=== PATIENT | female | born 1980 | race Caucasian/White ===

== ENCOUNTER → 2017-09-08 12:24 | Outpatient (CLI) | payer OTHER, SELFPAY | PROVIDERS: Family Provider Family Medicine; PCP Family Medicine; Visit Provider Obstetrics & Gynecology | DX: N39.0 Urinary tract infection, site not specified (principal); N77.1 Vaginitis, vulvitis and vulvovaginitis in diseases classified elsewhere | CPT/HCPCS: 87086 ==

== ENCOUNTER → 2018-04-04 20:40 | Outpatient (CLI) | payer OTHER, SELFPAY ==
[2018-04-07 14:20] LABS: HPV Reflexed? NOT INDICATED
== END ==
PROVIDERS: Visit Provider Obstetrics & Gynecology
DX: Z12.4 Encounter for screening for malignant neoplasm of cervix (principal)
CPT/HCPCS: 88175; G0145

== ENCOUNTER → 2018-10-04 13:52 | Outpatient (CLI) | payer OTHER, SELFPAY ==
[2018-10-04 16:42] LABS: AST(SGOT) 26 U/L (15-37); Alanine Aminotransfer ALT/SGPT 21 U/L (13-56); Cholesterol 194 mg/dL (200); High Density Lipoprotein 63 mg/dL; Thyroid Stim Hormone (TSH) 1.33 uIU/mL (0.358-3.74); Triglycerides 127 mg/dL; Very Low Density Lipoprotein 25 mg/dL (5-40)
== END ==
PROVIDERS: Family Provider Family Medicine; PCP Family Medicine; Referring Provider Family Medicine; Visit Provider Family Medicine
DX: E78.00 Pure hypercholesterolemia, unspecified (principal); R63.5 Abnormal weight gain
CPT/HCPCS: 36415; 80061; 84443; 84450; 84460

== ENCOUNTER → 2019-09-21 07:48 | Outpatient (CLI) | payer OTHER, SELFPAY ==
--- NOTE | 2019-09-21 08:01 | US_ITS ---
STUDY: ABDOMINAL ULTRASOUND - RIGHT UPPER QUADRANT REASON FOR VISIT: Female, 39 years old PERSIST ANT RT ABD PAIN TECHNIQUE: Ultrasound evaluation of the right upper quadrant was performed with real-time and static youngblood-scale imaging. TECHNICAL QUALITY: Adequate. COMPARISON: None. FINDINGS: Liver: The liver measures 12.9 cm. There is normal echogenicity of the liver. The bile ducts are within normal limits. There is hepatic color flow. The direction of portal flow is hepatopetal. There is no demonstrated mass lesion. Gallbladder: Normal distended gallbladder. The gallbladder wall measures 2.8 mm. There is a negative sonographic Ely''s sign. There is no pericholecystic fluid. There are no gallstones. Common Bile Duct (C.B.D.): The common bile duct measures 2.5 mm. Pancreas: Normal size of the head, body and tail of the pancreas. There is normal echogenicity of the pancreas. There is no demonstrated pancreatic mass or cyst. Right Kidney: Normal size of the right kidney. The right kidney measures 11.3 cm x 4.7 cm x 3.8 cm. Normal renal cortex. The right cortex measures 1.6 cm. There is no demonstrated renal mass or cyst. There is no right hydronephrosis. US/Abdomen Limited IMPRESSION: Normal right upper quadrant ultrasound examination. Electronically Signed: Osmar Killian, at 9:25 EDT , Service support ,
== END ==
PROVIDERS: PCP Family Medicine; Referring Provider Family Medicine; Visit Provider Family Medicine
DX: R10.11 Right upper quadrant pain (principal)
CPT/HCPCS: 76705

== ENCOUNTER → 2020-11-28 15:46 | Outpatient (CLI) | payer OTHER, SELFPAY ==
[2020-11-28 17:46] LABS: AST(SGOT) 25 U/L (15-37); Alanine Aminotransfer ALT/SGPT 24 U/L (13-56); Cholesterol 183 mg/dL (200); High Density Lipoprotein 55 mg/dL; Thyroid Stim Hormone (TSH) < 0.01 uIU/mL (0.358-3.74); Triglycerides 159 mg/dL; Very Low Density Lipoprotein 32 mg/dL (5-40)
[2020-12-01 17:45] LABS: Free T3 4.3 pg/mL (2.18-3.98); T4 Total, Thyroxin 11.1 ug/dL (4.8-13.9)
== END ==
PROVIDERS: PCP Family Medicine; Referring Provider Family Medicine; Visit Provider Family Medicine
DX: Z00.00 Encounter for general adult medical examination without abnormal findings (principal); E66.9 Obesity, unspecified; E78.00 Pure hypercholesterolemia, unspecified
CPT/HCPCS: 36415; 80061; 84436; 84443; 84450; 84460; 84481

== ENCOUNTER → 2021-02-06 11:52 | Outpatient (CLI) | payer OTHER, SELFPAY ==
[2021-02-06 15:54] LABS: Free T3 2.1 pg/mL (2.18-3.98); T4 Free Direct 0.67 ng/dL (0.76-1.46)
== END ==
PROVIDERS: PCP Family Medicine; Referring Provider Family Medicine; Visit Provider Internal Medicine Endocrinology, Diabetes & Metabolism
DX: R94.6 Abnormal results of thyroid function studies (principal)
CPT/HCPCS: 36415; 84439; 84443; 84481

== ENCOUNTER 2021-08-18 11:55 | Outpatient (CLI) | payer OTHER, SELFPAY ==
[2021-08-21 17:22] LABS: HPV APTIMA, High Risk Negative (Negative)
== END 2021-08-18 23:59 | disposition home or self-care (01) ==
PROVIDERS: PCP Family Medicine; Visit Provider Student in an Organized Health Care Education/Training Program
DX: Z12.4 Encounter for screening for malignant neoplasm of cervix (principal); N77.1 Vaginitis, vulvitis and vulvovaginitis in diseases classified elsewhere
CPT/HCPCS: 87624; 88175; G0145

== ENCOUNTER → 2021-12-16 | Outpatient (CLI) | payer OTHER, SELFPAY ==
[2021-12-16 18:38] LABS: AST(SGOT) 25 U/L (15-37); Alanine Aminotransfer ALT/SGPT 27 U/L (13-56); Cholesterol 208 mg/dL (200); High Density Lipoprotein 65 mg/dL; T4 Total, Thyroxin 6.3 ug/dL (4.8-13.9); Thyroid Stim Hormone (TSH) 5.67 uIU/mL (0.358-3.74); Triglycerides 152 mg/dL; Very Low Density Lipoprotein 30 mg/dL (5-40)
== END | disposition home or self-care (01) ==
LOC: MFPLAB 16:41
PROVIDERS: PCP Family Medicine; Referring Provider Family Medicine; Visit Provider Family Medicine
DX: E78.5 Hyperlipidemia, unspecified (principal); E05.90 Thyrotoxicosis, unspecified without thyrotoxic crisis or storm
CPT/HCPCS: 36415; 80061; 84436; 84443; 84450; 84460

== ENCOUNTER → 2022-02-16 | Outpatient (CLI) | payer OTHER, SELFPAY ==
[2022-02-16 15:47] LABS: Free T3 2.2 pg/mL (2.18-3.98); T4 Free Direct 0.72 ng/dL (0.76-1.46); Thyroid Stim Hormone (TSH) 4.38 uIU/mL (0.358-3.74)
[2022-02-19 18:13] LABS: Thyroid Peroxidase AB 286 IU/mL (0-34)
== END | disposition home or self-care (01) ==
LOC: MTLAB 12:41
PROVIDERS: PCP Family Medicine; Referring Provider Internal Medicine Endocrinology, Diabetes & Metabolism; Visit Provider Internal Medicine Endocrinology, Diabetes & Metabolism
DX: R94.6 Abnormal results of thyroid function studies (principal)
CPT/HCPCS: 36415; 84439; 84443; 84481; 86376

== ENCOUNTER → 2022-04-21 | Outpatient (CLI) | payer OTHER, SELFPAY ==
[2022-04-21 18:55] LABS: T4 Free Direct 1.33 ng/dL (0.76-1.46); Thyroid Stim Hormone (TSH) 0.11 uIU/mL (0.358-3.74)
== END | disposition home or self-care (01) ==
LOC: MFPLAB 15:07
PROVIDERS: PCP Family Medicine; Referring Provider Family Medicine; Visit Provider Internal Medicine Endocrinology, Diabetes & Metabolism
DX: E03.8 Other specified hypothyroidism (principal); E06.3 Autoimmune thyroiditis
CPT/HCPCS: 36415; 84439; 84443

== ENCOUNTER → 2022-07-28 | Outpatient (CLI) | payer OTHER, SELFPAY ==
[2022-07-28 12:50] LABS: Thyroid Stim Hormone (TSH) 3.45 uIU/mL (0.358-3.74)
== END | disposition home or self-care (01) ==
LOC: MFPLAB 10:13
PROVIDERS: PCP Family Medicine; Referring Provider Family Medicine; Visit Provider Internal Medicine Endocrinology, Diabetes & Metabolism
DX: E03.8 Other specified hypothyroidism (principal); E06.3 Autoimmune thyroiditis
CPT/HCPCS: 36415; 84439; 84443

== ENCOUNTER → 2022-10-13 | Outpatient (CLI) | payer OTHER, SELFPAY ==
[2022-10-13 17:29] LABS: AST(SGOT) 27 U/L (15-37); Alanine Aminotransfer ALT/SGPT 23 U/L (13-56); Cholesterol 213 mg/dL (200); High Density Lipoprotein 60 mg/dL; T4 Total, Thyroxin 9.4 ug/dL (4.8-13.9); Thyroid Stim Hormone (TSH) 4.08 uIU/mL (0.358-3.74); Triglycerides 146 mg/dL; Very Low Density Lipoprotein 29 mg/dL (5-40)
== END | disposition home or self-care (01) ==
LOC: MFPLAB 14:59
PROVIDERS: PCP Family Medicine; Visit Provider Family Medicine
DX: E03.9 Hypothyroidism, unspecified (principal); E78.00 Pure hypercholesterolemia, unspecified
CPT/HCPCS: 36415; 80061; 84436; 84443; 84450; 84460

== ENCOUNTER → 2023-04-20 | Outpatient (CLI) | payer OTHER, SELFPAY ==
[2023-04-20 11:03] LABS: Thyroid Stim Hormone (TSH) 1.66 uIU/mL (0.358-3.74)
== END | disposition home or self-care (01) ==
PROVIDERS: PCP Family Medicine; Visit Provider Family Medicine
DX: E03.9 Hypothyroidism, unspecified (principal)
CPT/HCPCS: 36415; 84443

== ENCOUNTER → 2023-10-17 | Outpatient (CLI) | payer OTHER, SELFPAY ==
[2023-10-17 17:59] LABS: AST(SGOT) 31 U/L (15-37); Alanine Aminotransfer ALT/SGPT 28 U/L (13-56); Cholesterol 221 mg/dL (200); High Density Lipoprotein 63 mg/dL; Thyroid Stim Hormone (TSH) 1.75 uIU/mL (0.358-3.74); Triglycerides 132 mg/dL; Very Low Density Lipoprotein 26 mg/dL (5-40)
== END | disposition home or self-care (01) ==
LOC: MFPLAB 14:43
PROVIDERS: PCP Family Medicine; Visit Provider Family Medicine
DX: E78.00 Pure hypercholesterolemia, unspecified (principal); E03.9 Hypothyroidism, unspecified
CPT/HCPCS: 36415; 80061; 84436; 84443; 84450; 84460

== ENCOUNTER → 2023-10-24 | Outpatient (CLI) | payer OTHER, SELFPAY ==
--- NOTE | 2023-10-24 15:30 | BI_ITS ---
MAMMOGRAPHY - BILATERAL SCREENING REASON FOR EXAM: Female, 43 years old. Routine annual screening examination. PERTINENT HISTORY: Non-contributory. TECHNIQUE: Digital bilateral breast azael (3D mammographic acquisition) in the CC and MLO projections. 2-D mediolateral oblique (MLO) and craniocaudad (CC) views of both breasts were obtained. CAD: Full Field Digital Mammography with Computer Added Detection was performed. COMPARISON: None. Baseline examination. FINDINGS: Breast Composition: The breasts are heterogeneously dense, which may obscure small masses. There are no dominant masses or suspicious calcifications. No other significant abnormalities are identified. There has been no significant change since the prior study. BI/SCRN MAMM (CAD)W/AZAEL BILAT IMPRESSION: Stable bilateral screening mammogram. Yearly follow-up mammogram recommended. (A) ASSESSMENT CATEGORY: BIRADS Category 1: Negative. A letter regarding these results will be sent to the patient by the facility within 30 days. Approximately 10% of breast cancers are not detected by mammography. A normal mammogram should not delay biopsy of a clinically suspicious abnormality. [id number] Electronically Signed: Osmar Killian MD at 8:28 EDT ,
== END | disposition home or self-care (01) ==
LOC: OPBI 15:30
PROVIDERS: PCP Family Medicine; Referring Provider Family Medicine; Visit Provider Family Medicine
DX: Z12.31 Encounter for screening mammogram for malignant neoplasm of breast (principal)
CPT/HCPCS: 77063; 77067

== ENCOUNTER → 2023-12-16 | Outpatient (CLI) | payer OTHER, SELFPAY ==
[2023-12-16 10:58] LABS: Cholesterol 224 mg/dL (200); High Density Lipoprotein 59 mg/dL; Triglycerides 167 mg/dL; Very Low Density Lipoprotein 33 mg/dL (5-40)
== END | disposition home or self-care (01) ==
LOC: MFPLAB 08:16
PROVIDERS: PCP Family Medicine; Visit Provider Family Medicine
DX: E78.00 Pure hypercholesterolemia, unspecified (principal)
CPT/HCPCS: 36415; 80061

== ENCOUNTER → 2024-02-23 | Outpatient (CLI) | payer OTHER, SELFPAY ==
[2024-02-23 10:25] LABS: Cholesterol 189 mg/dL (200); High Density Lipoprotein 59 mg/dL; Triglycerides 104 mg/dL; Very Low Density Lipoprotein 21 mg/dL (5-40)
== END | disposition home or self-care (01) ==
LOC: MFPLAB 08:18
PROVIDERS: PCP Family Medicine; Visit Provider Family Medicine
DX: E78.00 Pure hypercholesterolemia, unspecified (principal)
CPT/HCPCS: 36415; 80061

== ENCOUNTER → 2025-01-24 | Outpatient (CLI) | payer OTHER, SELFPAY ==
[2025-01-24 17:11] LABS: Hematocrit 39.6 % (37-47); Hemoglobin 13.2 g/dL (12.0-15.0); Immature Granulocytes Count 0.020 X10^3/uL (0.0-0.0); Mean Corp Hgb Conc 33.3 g/dL (32-36); Mean Corpuscular Volume 90.8 fL (81-99); NRBC Flagged by Analyzer 0 % (0-5); POSITIVE COUNT YES; RBC Distribution Width CV 12.9 % (11.6-14.6); RBC Distribution Width SD 42.7 fl (35.1-43.9); Red Blood Count 4.36 M/mm3 (4.2-5.4); White Blood Count 6.1 K/mm3 (4.4-11.0)
[2025-01-24 18:00] LABS: AST(SGOT) 33 U/L (<=31); Alanine Aminotransfer ALT/SGPT 21 U/L (<=34); Albumin, Serum 4.7 g/dL (3.5-5.0); Alkaline Phosphatase 62 U/L (35-104); Anion Gap 13 (5-15); BUN 10 mg/dL (4-19); BUN/Creat Ratio 8.8 RATIO (10-20); Calcium,Total 10.1 mg/dL (7.6-11.0); Carbon Dioxide 23.6 mmol/L (21.0-32.0); Chloride 102 mmol/L (98-108); Cholesterol 209 mg/dL (<=200); Globulin 3.6 g/dL (2.2-4.2); Glucose 97 mg/dL (70-99); Low Density Lipoprotein Calc. 115 mg/dL; Potassium 4.3 mmol/L (3.3-5.1); Triglycerides 136 mg/dL; Very Low Density Lipoprotein 27 mg/dL (5-40); cholesterol:hdl ratio screen 3.13
[2025-01-24 21:54] LABS: Differential Indicated SCAN CRITERIA MET
[2025-01-24 21:55] LABS: Differential Comment SCANNED
== END | disposition home or self-care (01) ==
LOC: BIMLAB 15:27
PROVIDERS: PCP Internal Medicine; Visit Provider Internal Medicine
DX: Z00.00 Encounter for general adult medical examination without abnormal findings (principal); E03.9 Hypothyroidism, unspecified
CPT/HCPCS: 36415; 80053; 80061; 84443; 85025

== ENCOUNTER → 2025-02-01 | Outpatient (CLI) | payer OTHER, SELFPAY ==
--- NOTE | 2025-02-01 15:45 | BI_ITS ---
EXAM: SCRN MAMM (CAD)W/AZAEL BILAT DATE: 02/01/2025 CLINICAL HISTORY: F, Age 44 y/o , BREAST CANCER SCREENING TECHNIQUE: SCRN MAMM (CAD)W/AZAEL BILAT COMPARISON: Prior exam(s) were compared FINDINGS: TISSUE DENSITY: The breasts are heterogeneously dense, which may obscure small masses. Bilateral Breast Mammographic Findings: No suspicious masses, calcifications or other abnormalities are identified. BI/SCRN MAMM (CAD)W/AZAEL BILAT IMPRESSION: No mammographic evidence of malignancy in either breast OVERALL FINAL ASSESSMENT BI-RADS 1: NEGATIVE. RECOMMENDATION: Routine annual follow-up in 1 Year A letter with findings and recommendations will be mailed to the patient. Reading Location: [id number]
--- NOTE | 2025-02-01 15:45 | BI_ITS ---
EXAM: SCRN MAMM (CAD)W/AZAEL BILAT DATE: 02/01/2025 CLINICAL HISTORY: F, Age 44 y/o , BREAST CANCER SCREENING TECHNIQUE: SCRN MAMM (CAD)W/AZAEL BILAT COMPARISON: Prior exam(s) were compared FINDINGS: TISSUE DENSITY: The breasts are heterogeneously dense, which may obscure small masses. Bilateral Breast Mammographic Findings: No suspicious masses, calcifications or other abnormalities are identified. BI/SCRN MAMM (CAD)W/AZAEL BILAT IMPRESSION: No mammographic evidence of malignancy in either breast OVERALL FINAL ASSESSMENT BI-RADS 1: NEGATIVE. RECOMMENDATION: Routine annual follow-up in 1 Year A letter with findings and recommendations will be mailed to the patient. Reading Location: [id number]
--- OUTSIDE RECORDS SUMMARY | 2025-02-01 16:20 | XMS RPT_ITS | CCD ---
Author Organization [facility] Care Team Providers Care Mail Order Sorter Name Role Phone Dr. Enedelia Starr Primary Care Provider Dr. Enedelia Starr Referring Provider [phone] Dr. Doroteo Calvillo Attending Provider Dr. Enedelia Starr MD Primary Care Provider Dr. Enedelia Starr MD Referring Provider [phone] Reagan GARDNER, Dr. Lee Attending Provider Enedelia Starr Referring Unavailable Enedelia Starr Primary Care Unavailable Jesus Kirk Attending Unavailable Enedelia Starr Attending Unavailable Enedelia Starr Primary Care Unavailable Jesus Kirk Attending Unavailable Jesus Kirk Primary Care Unavailable Reagan GARDNER, Dr. Lee Primary Care Provider Medications Current Medications Medication Drug Class(es) Dates Sig (Normalized) Sig (Original) atorvastatin 40 mg oral tablet (2 sources) HMG-CoA Reductase Inhibitor Start: 01-24-2025 take 1 tablet by mouth once daily Atorvastatin 40 mg tablet Active 40 mg PO DAILY January 24, 2025 12:00am high cholestrol Completed/Discontinued Medications Medication Drug Class(es) Dates Sig (Normalized) Sig (Original) cholecalciferol 0.05 mg oral capsule (9 sources) Vitamin D Start: 01-29-2022 End: 01-24-2025 take 1 capsule by mouth once daily Cholecalciferol (Vitamin D3) 50 mcg (2,000 unit) capsule Discontinued 50 ug PO DAILY January 29, 2022 12:00am January 24, 2025 2:39pm mydeco (9 sources) Start: 01-29-2022 End: 02-17-2023 [facility]ERGY Discontinued PO January 29, 2022 12:00am February 17, 2023 3:27pm Start: 01-29-2022 [facility]ER[facility] Active PO January 28, 2022 11:00pm Start: 01-29-2022 [facility] ENERGY Active PO January 29, 2022 12:00am levothyroxine sodium 0.075 mg oral tablet (20 sources) l-Thyroxine Start: 02-21-2022 End: 02-17-2023 take 1 tablet by mouth once daily Levothyroxine 75 mcg tablet Discontinued 75 ug PO DAILY 90 August 19, 2022 3:54pm February 17, 2023 3:48pm 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 Other specified hypothyroidism Autoimmune thyroiditis simvastatin 40 mg oral tablet (9 sources) HMG-CoA Reductase Inhibitor Start: 01-29-2022 End: 01-24-2025 Simvastatin 40 mg tablet Discontinued NMA PO January 29, 2022 12:00am January 24, 2025 2:39pm Start: 01-29-2022 Simvastatin Ac tive TAB PO January 29, 2022 12:00am Vitamin B Complex (7 sources) Start: 01-29-2022 End: 02-17-2023 take 1 tablet by mouth once daily Vitamin B Complex Discontinued 1 TABLET PO DAILY January 29, 2022 12:00am February 17, 2023 3:27pm Start: 01-29-2022 take 1 tablet by mouth once [place] Vitamin B Complex Active 1 TABLET PO DAILY January 28, 2022 11:00pm Start: 01-29-2022 take 1 tablet by mouth once [place] Vitamin B Complex Active 1 TABLET PO DAILY January 29, 2022 12:00am Vitamin B Complex tablet (2 sources) Start: 01-29-2022 End: 02-17-2023 Vitamin B Complex tablet Dis continued 1 {tbl} PO DAILY January 29, 2022 12:00am February 17, 2023 3:27pm Problems Active Problems Problem Classification Problem Date Documented Date Episodic/Chronic Administrative/social admission (2 sources) First encounter by subject; Translations: [Persons encountering health services in other specified circumstances] 01-24-2025 Episodic Disorders of lipid metabolism (3 sources) Pure hypercholesterolemia, unspecified; Translations: [Hyperlipidemia] Onset: 03-05-2024 01-24-2025 Chronic Headache; including migraine (2 sources) Headache; Translations: [Headache] 01-24-2025 Episodic Other nutritional; endocrine; and metabolic disorders (2 sources) Obesity; Translations: [Obesity, unspecified] 01-24-2025 Chronic Other screening for suspected conditions (not mental disorders or infectious disease) (2 sources) Thyroid function tests abnormal; Translations: [Abnormal results of thyroid function studies] Episodic Thyroid disorders (14 sources) 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; Translations: [Other specified hypothyroidism] Onset: 01-24-2025 02-21-2022 Chronic Unclassified (3 sources) Encounter for preventive care Unclassified (3 sources) Z00.00 - Encounter for general adult medical examination without abnormal findings Past or Other Problems Problem Classification Problem Date Documented Da te Episodic/Chronic Thyroid disorders (2 sources) Disorder of thyroid gland; Translations: [Disorder of thyroid, unspecified] Onset: 06-27-2020 01-24-2025 Episodic Results Test Name Value Interpretation Reference Range Facility Absolute lymphocyte countOrd ered By: Jesus Kirk on 01-24-2025 Lymphocytes Auto (Unsp spec) [#/Vol] 2.09 10*3/uL 0.83-4.51 [facility] Absolute neutrophil countOrd ered By: Jesus Kirk on 01-24-2025 Neutrophils (Bld) [#/Vol] 3.4 10*3/uL 2.0-7.7 [facility] Anion gap in Serum or Plasma Ordered By: Jesus Kirk on 01-24-2025 Anion gap [Moles/Vol] 13 mmol/L 5-15 [facility] Automated lymphocyte count a s percentage of total leukocytesOrdered By: Jesus Kirk on 01-24-2025 Lymphocytes/100 WBC Auto (Unsp spec) 34.5 % 19-41 [facility] BUN/creatinine ratioOrdered By: Jesus Kirk on 01-24-2025 Urea nitrogen/Creatinine [Mass ratio] 8.8 mg/mg Low 10-20 [facility] Basophil percentageOrdered B y: Jesus Kirk on 01-24-2025 Basophils/100 WBC (Bld) 0.7 % 0-1 [facility] Blood manual differential co mment interpretation (narrative result)Ordered By: Jessu Kirk on 01-24-2025 Manual differential comment Skinny (Bld) [Interp] SCANNED [facility] CBC W/Diff, Automatedon 07- PLT EST ADEQUATE Normal ADEQ [facility] Comment on above: Performed By: #### L 501.9520, L100.0100, L500.4100, L500.4050 #### [facility] [address] [place], [address] SMEAR COMMENT SCANNED Normal [facility] Comment on above: Performed By: #### L 501.9520, L100.0100, L500.4100, L500.4050 #### [facility] [address] [place], [address] Calculated very low density lipoprotein (VLDL) cholesterol measurementOrdered By: Jesus Kirk on 01-24-2025 Calculated very low density lipoprotein (VLDL) cholesterol measurement 27 mg/dL 5-40 [facility] Comprehensive Metabolic Prof ilon 01-24-2025 ALK PHOS 62 U/L Normal 35-104 [facility] Comment on above: Performed By: #### L 501.9520, L100.0100, L500.4100, L500.4050 #### [facility] [address] [place], [address] BUN/CRE 8.8 RATIO Low 10-20 [facility] Comment on above: Performed By: #### L 501.9520, L100.0100, L500.4100, L500.4050 #### [facility] [address] [place], [address] GAP 13 Normal 5-15 [facility] Comment on above: Performed By: #### L [id number], L100.0100, L500.4100, L500.4050 #### [facility] [address] [place], [address] Potassium [Moles/Vol] 4.3 mmol/L Normal 3.3-5.1 [facility] Comment on above: Performed By: #### L 501.9520, L100.0100, L500.4100, L500.4050 #### [facility] [address] [place], [address] T PROT 8.3 g/dL Normal 5.9-8.4 [facility] Comment on above: Performed By: #### L 501.9520, L100.0100, L500.4100, L500.4050 #### [facility] [address] [place], [address] Comprehensive Metabolic Prof ilOrdered By: Jesus Kirk on 01-24-2025 Albumin [Mass/Vol] 4.7 g/dL 3.5-5.0 [facility] Comment on above: Performed By: #### L 501.9520, L100.0100, L500.4100, L500.4050 #### [facility] [address] [place], [address] Albumin/Globulin [Mass ratio] 1.3 {ratio} 0.9-2.4 [facility] Comment on above: Performed By: #### L 501.9520, L100.0100, L500.4100, L500.4050 #### [facility] [address] [place], [address] ALT [Catalytic activity/Vol] 21 U/L <35 [facility] Comment on above: Performed By: #### L 501.9520, L100.0100, L500.4100, L500.4050 #### [facility] [address] [place], [address] AST [Catalytic activity/Vol] 33 U/L High <32 [facility] Comment on above: Performed By: #### L 501.9520, L100.0100, L500.4100, L500.4050 #### [facility] [address] [place], [address] Bilirubin [Mass/Vol] 0.63 mg/dL 0.00-1.30 [facility] Comment on above: Performed By: #### L 501.9520, L100.0100, L500.4100, L500.4050 #### [facility] [address] [place], [address] Calcium [Mass/Vol] 10.1 mg/dL 7.6-11.0 [facility] Comment on above: Performed By: #### L [id number], L100.0100, L500.4100, L500.4050 #### [facility] [address] [place], [address] Chloride [Moles/Vol] 102 mmol/L 98-108 [facility] Comment on above: Performed By: #### L 501.9520, L100.0100, L500.4100, L500.4050 #### [facility] [address] [place], [address] CO2 [Moles/Vol] 23.6 mmol/L 21.0-32.0 [facility] Comment on above: Performed By: #### L 501.9520, L100.0100, L500.4100, L500.4050 #### [facility] [address] [place], [address] Creatinine [Mass/Vol] 1.10 mg/dL 0.70-1.20 [facility] Comment on above: Performed By: #### L 501.9520, L100.0100, L500.4100, L500.4050 #### [facility] [address] [place], [address] GFR/1.73 sq M.predicted among non-blacks MDRD (S/P/Bld) [Vol rate/Area] 64 mL/min/{1.73_m2} >60 [facility] Comment on above: Result Comment: mL/m in/1.73m2 CKD-EPI Creatinine Equation (2020) Performed By: #### L 501.9520, L100.0100, L500.4100, L500.4050 #### [facility] [address] [place], [address] mL/min/1.73m2 CKD-EP I Creatinine Equation (2020) Globulin (S) [Mass/Vol] 3.6 g/dL 2.2-4.2 [facility] Comment on above: Performed By: #### L 501.9520, L100.0100, L500.4100, L500.4050 #### [facility] [address] [place], [address] Glucose [Mass/Vol] 97 mg/dL 70-99 [facility] Comment on above: Performed By: #### L 501.9520, L100.0100, L500.4100, L500.4050 #### [facility] [address] [place], [address] Sodium [Moles/Vol] 138 mmol/L 133-145 [facility] Comment on above: Performed By: #### L 501.9520, L100.0100, L500.4100, L500.4050 #### [facility] [address] [place], [address] Urea nitrogen [Mass/Vol] 10 mg/dL 4-19 [facility] Comment on above: Performed By: #### L 501.9520, L100.0100, L500.4100, L500.4050 #### [facility] [address] [place], [address] Eosinophil percentageOrdered By: Jesus Kirk on 01-24-2025 Eosinophils/100 WBC (Bld) 1.3 % 0-5 [facility] Erythrocyte distribution wid th ratioOrdered By: Jesus Kirk on 01-24-2025 Erythrocyte distribution width (RBC) [Ratio] 12.9 % 11.6-14.6 [facility] Erythrocyte distribution wid th standard deviationOrdered By: Jesus Kirk on 01-24-2025 Erythrocyte distribution width (RBC) [Ratio] 42.7 fl 35.1-43.9 [facility] Hematocrit Auto (Bld) [Volum e fraction]Ordered By: Jesus Kirk on 01-24-2025 Hematocrit (Bld) [Volume fraction] 39.6 % 37-47 [facility] Hemoglobin measurementOrdere d By: Jesus Kirk on 01-24-2025 Hemoglobin (Bld) [Mass/Vol] 13.2 g/dL 12.0-15.0 [facility] Immature granulocytes/100 WB C Auto (Bld)Ordered By: Jesus Kirk on 01-24-2025 Immature granulocytes/100 WBC (Bld) 0.300 % 0.0-0.9 [facility] Comment on above: IG% - Immature Granu locytes (promyelocytes, myelocytes and metamyelocytes) > 1% indicates that a LEFT SHIFT is Present. Internal Medicine Office Vis itoalbaro 01-24-2025 Internal Medicine Office Visit [facility] [place] [address] [place] [address] OFFICE VISIT Date of Service: 01/24/25 MR#: [id number] Acct: [id number] Name: YVONNE THACKER ALEX Rep #: [id number] : 1980 Provider: Dr. 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 PCOS (polycystic ovarian syndrome) High cholesterol UTI (urinary tract infection) Allergies 2, not currently Surgical History H/O wisdom tooth extraction Family History Mother Age: 70 High cholesterol Thyroid disorder Father Age: 72 History of blood clotting disorder High cholesterol Myocardial infarction Other Arthritis Blood clot in vein Social History Smoking Status: Never smoker alcohol intake: current alcohol intake frequency: holidays/special occasions only substance use type: does not use what type of physical activity do you participate in: walking and running frequency: 3-4 times per week HPI HPI Chief Complaint: Est Care Details: YVONNE THACKER, is a 44-year-old female presenting with management of hypothyroidism, hyperlipidemia, weight concerns and to establish care She reports occipital pain resembling a pinched nerve, managed with ibuprofen and a heating pad, showing improvement over three days. No known precipitating factor or trauma. Diagnosed with hypothyroidism four years ago, she attributes a 20-pound weight gain to this condition, despite dietary tracking and regular exercise. Currently on levothyroxine which she is taking as prescribed. She reports a strong family history of hypothyroidism as well. She is on atorvastatin for hyperlipidemia. Taking her medication consistently. No muscle pain or weakness. As above, concerned about her weight. Up from a BMI of 28 2 years ago to the BMI of 30.2. Has intermittently tracked her calories but not consistently lately. Exercises at least daily. Preventative care wilcox, she is due for Pap smear and mammogram. Has not been seen by dermatology. No known family history of colon cancer. No tobacco or alcohol use. Attestation: Documentation on this patient encounter was supported using ambient scribe technology/ voice AI technology. The patient consented to recording for the purpose of documenting the encounter. Provider reviewed content of the generated note prior to signature. ROS Const Constitutional: No body ache, chills, excessive sweating, fatigue, fever(s), frequent falls, headache(s), snoring, weakness, weight change, sleep problems or change in appetite Eyes Eyes: No blurry vision, change in vision, vision loss, dry eyes, eye pain or Light sensitivity ENT ENT: No abnormal hearing, ear or mastoid pain, hearing loss, tinnitus, dizziness/vertigo, nasal congestion, headache(s), neck pain or sore throat Resp Respiratory: No cough, excessive phlegm production, hemoptysis, shortness of breath, snoring or wheezing Cardio Cardiology: No chest pain at rest, chest pain with exertion, excessive sweating, shortness of breath, lightheadedness, orthopnea or palpitations Gastro GI: No abdominal pain, change in bowel habits, constipation, cramping, diarrhea, nausea/dyspepsia or vomiting Genitourinary-Female : No burning urination, painful urination, urinary incontinence, urinary frequency, abnormal vaginal bleeding or pelvic pain Musc Musculoskeletal: No abnormal gait, joint pain, back pain, limited range of motion, neck pain, numbness or tingling Skin Skin: No dry skin, redness, lesions, itchy eyes, rash or wounds Neuro Neurology: No abnormal gait, abnormal hea (more content not included)... Normal [facility] Lipid Profileon 01-24-2025 CHOL:HDL 3.13 Normal [facility] Comment on above: Performed By: #### L 501.9520, L100.0100, L500.4100, L500.4050 #### [facility] [address], [address] Cholesterol in VLDL [Mass/Vol] 27 mg/dL Normal 5-40 [facility] Comment on above: Performed By: #### L 501.9520, L100.0100, L500.4100, L500.4050 #### [facility] [address] [place], [address] Lipid ProfileOrdered By: Yandel Kirk on 01-24-2025 Cholesterol [Mass/Vol] 209 mg/dL High <201 [facility] Comment on above: Result Comment: Chol esterol level, Desirable <200 mg/dL Borderline high cholesterol 200-239 mg/dL High cholesterol >=240 mg/dL Recommendations of the NCEP Adult Treatment Panel for the following risk-cutoff thresholds for the [place] population. Performed By: #### L 501.9520, L100.0100, L500.4100, L500.4050 #### [facility] [address] [place], [address] Cholesterol level, D esirable <200 mg/dLBorderline high cholesterol 200-239 mg/dLHigh cholesterol >=240 mg/dLRecommendations of the NCEP Adult Treatment Panel for the following risk-cutoff thresholds for the [place] population. Cholesterol in HDL [Mass/Vol] 67 mg/dL >40 [facility] Comment on above: Result Comment: No onal Cholesterol Education Program (NCEP) guidelines: <40 mg/dL: Low HDL-cholesterol (major risk factor for CHD) >= 60 mg/dL: High HDL-cholesterol (negative risk factor for CHD) HDL-cholesterol is affected by a number of factors, e.g. smoking, exercise, hormones, sex and age. Performed By: #### L 501.9520, L100.0100, L500.4100, L500.4050 #### [facility] [address], [address] National Cholesterol Education Program (NCEP) guidelines:<40 mg/dL: Low HDL-cholesterol (major risk factor for CHD)>= 60 mg/dL: High HDL-cholesterol (negative risk factor for CHD)HDL-cholesterol is affected by a number of factors, e.g. smoking, exercise, hormones, sex and age. Cholesterol in LDL [Mass/Vol] 115 mg/dL [facility] Comment on above: Result Comment: Bord cklqwt=950-224 mg/dL Higher Zxqk=657 mg/dL or greater Friedwald Equation for LDL-C Performed By: #### L 501.9520, L100.0100, L500.4100, L500.4050 #### [facility] [address] [place], [place], [id number] Earspgjneg=477-654 m g/dL & Higher Zjet=655 mg/dL or greaterFriedwald Equation for LDL-C Triglyceride [Mass/Vol] 136 mg/dL <199 [facility] Comment on above: Result Comment: The drugs N-Acetylcysteine and Metamizole may falsely depress this assay. Normal range: <150 mg/dL Borderline High: 150-199 mg/dL High: 200-499 mg/dL Very High: >500 mg/dL Performed By: #### L 501.9520, L100.0100, L500.4100, L500.4050 #### [facility] [address] [place], [place], [id number] The drugs N-Acetylcy steine and Metamizole may falsely depress this assay. Normal range: <150 mg/dLBorderline High: 150-199 mg/dLHigh: 200-499 mg/dLVery High: >500 mg/dL MCV (mean corpuscular volume ) determinationOrdered By: Jesus Kirk on 01-24-2025 MCV (RBC) [Entitic vol] 90.8 fL 81-99 [facility] Mean corpuscular hemoglobin (MCH) determinationOrdered By: Jesus Kirk on 01-24-2025 MCH (RBC) [Entitic mass] 30.3 pg 27.0-32.0 [facility] Mean corpuscular hemoglobin concentration (MCHC) determinationOrdered By: Jesus Kirk on 01-24-2025 MCHC (RBC) [Mass/Vol] 33.3 g/dL 32-36 [facility] Mean platelet volume determi nationOrdered By: Jesus Kirk on 01-24-2025 [facility] platelet volume [facility] Comment on above: Test not performed Monocyte percentageOrdered B y: Jesus Kirk on 01-24-2025 Monocytes/100 WBC (Bld) 7.4 % 0-10 [facility] Neutrophil percentageOrdered By: Jesus Kirk on 01-24-2025 Neutrophils/100 WBC (Bld) 55.8 % 47-70 [facility] Nucleated red blood cell per centageOrdered By: Jesus Kirk on 01-24-2025 Nucleated RBC/100 WBC (Bld) [Ratio] 0 % 0-5 [facility] Platelet countOrdered By: Deedee Kirk on 01-24-2025 Platelet count TNP [facility] Comment on above: Test not performedPl ease note: For this sample, a platelet estimate is provided rather than a platelet count due to platelet clumping. Other parameters associated with this sample are not affected by platelet clumping. If a more accurate platelet count is required, a redraw of the patient will be necessary. Platelet estimateOrdered By: Jesus Kirk on 01-24-2025 Platelets LM Ql (Bld) ADEQUATE ADEQ [facility] Potassium measurement (mass/ volume)Ordered By: Jesus Kirk on 01-24-2025 Potassium (Unsp spec) [Mass/Vol] 4.3 mmol/L 3.3-5.1 [facility] RBC Auto (Bld) [#/Vol]Ordere d By: Jesus Kirk on 01-24-2025 RBC (Bld) [#/Vol] 4.36 10*6/uL 4.2-5.4 [facility] Screening total cholesterol/ high density lipoprotein (HDL) cholesterol ratioOrdered By: Jesus Kirk on 01-24-2025 Cholesterol.total/Choles terol in HDL [Mass ratio] 3.13 {ratio} [facility] Serum or plasma alkaline max sphatase measurementOrdered By: Jesus Kirk on 01-24-2025 ALP [Catalytic activity/Vol] 62 U/L 35-104 [facility] TSH DL <= 0.005 mIU/L QnOrde red By: Jesus Kirk on 01-24-2025 TSH Qn 3.970 uIU/mL 0.300-4.200 [facility] Thyroid Stim Hormone (TSH)on 01-24-2025 TSH 3.970 uIU/mL Normal 0.300-4.200 [facility] Comment on above: Performed By: #### L 501.9520, L100.0100, L500.4100, L500.4050 #### [facility] [address] [place], [address] Total proteinOrdered By: Yandel Kirk on 01-24-2025 Protein [Mass/Vol] 8.3 g/dL 5.9-8.4 [facility] White blood cell (WBC) count Ordered By: Jesus Kirk on 01-24-2025 WBC (Bld) [#/Vol] 6.1 10*3/uL 4.4-11.0 [facility] Lipid Profileon 02-23-2024 Cholesterol [Mass/Vol] 189 mg/dL Normal 200 [facility] Comment on above: Order Comment: Order Date: 12/19/23 Order Info: [id number] - LIPID Result Comment: <200 mg/dL Desirable 200-240 mg/dL Borderline >240 mg/dL High Risk Performed By: #### L 500.4100 #### [facility] [address] [place], [address] Cholesterol in HDL [Mass/Vol] 59 mg/dL Normal [facility] Comment on above: Order Comment: Order Date: 12/19/23 Order Info: [id number] - LIPID Result Comment: The drugs N-Acetylcysteine and Metamizole may falsely depress this assay. Reference Range HDL <40 mg/dL Low HDL Cholesterol HDL >or= 60 mg/dL High HDL Cholesterol Performed By: #### L 500.4100 #### [facility] [address] [place], [address] Cholesterol in LDL [Mass/Vol] 109 mg/dL Normal 0-130 [facility] Comment on above: Order Comment: Order Date: 12/19/23 Order Info: [id number] - LIPID Performed By: #### L 500.4100 #### [facility] [address] [place], [place], [address] Cholesterol in VLDL [Mass/Vol] 21 mg/dL Normal 5-40 [facility] Comment on above: Order Comment: Order Date: 12/19/23 Order Info: [id number] - LIPID Performed By: #### L 500.4100 #### [facility] [address] [place], [address] Triglyceride [Mass/Vol] 104 mg/dL Normal [facility] Comment on above: Order Comment: Order Date: 12/19/23 Order Info: [id number] - LIPID Result Comment: The drugs N-Acetylcysteine and Metamizole may falsely depress this assay. Serum Triglycerides Reference Interval Normal <150 mg/dL Borderline high 150 - 199 mg/dL High 200 - 499 mg/dL Very High > or = 500 mg/dL Performed By: #### L 500.4100 #### [facility] [address] [place], [address] Basophil percentageOrdered B y: Enedelia Starr on 10-17-2023 Cholesterol [Mass/Vol] 221 mg/dL <200 [facility] Comment on above: <200 mg/dL Desirable 200-240 mg/dL Borderline >240 mg/dL High Risk Triglyceride [Mass/Vol] 132 mg/dL <199 [facility] Comment on above: The drugs N-Acetylcy steine and Metamizole may falsely depress this assay.Serum Triglycerides Reference Interval Normal <150 mg/dL Borderline high 150 - 199 mg/dL High 200 - 499 mg/dL Very High > or = 500 mg/dL Laboratory - Chemistry and C hemistry - challengeOrdered By: Enedelia Starr on 10-17-2023 ALT [Catalytic activity/Vol] 28 U/L 13-56 [facility] Cholesterol in HDL [Mass/Vol] 63 mg/dL >40 [facility] Comment on above: The drugs N-Acetylcy steine and Metamizole may falsely depress this assay. Reference Range HDL <40 mg/dL Low HDL Cholesterol HDL >or= 60 mg/dL High HDL Cholesterol Cholesterol in LDL [Mass/Vol] 132 mg/dL 0-130 [facility] No Panel InformationOrdered By: Enedelia Starr on 10-17-2023 VLDL Cholesterol 26 mg/dL 5-40 [facility] Serum or plasma thyroid stim ulating hormone (TSH) measurement (units/volume)Ordered By: Enedelia Starr on 10-17-2023 TSH Qn 1.75 uIU/mL 0.358-3.74 [facility] Serum or plasma thyroxine (T 4) measurement (mass/volume)Ordered By: Enedelia Starr on 10-17-2023 T4 [Mass/Vol] 10.0 ug/dL 4.8-13.9 [facility] Thin prep Papanicolaou smear with manual screeningOrdered By: Enedelia Starr on 10-17-2023 Thin prep Papanicolaou smear with manual screening 31 U/L 15-37 [facility] No Panel InformationOrdered By: Enedelia Starr on 04-20-2023 Thyroid Stimulating Hormone (TSH) 1.66 uIU/mL 0.358-3.74 [facility] Basophil percentageOrdered B y: Dr. Starr on 10-13-2022 Cholesterol [Mass/Vol] 213 mg/dL <200 [facility] Comment on above: <200 mg/dL Desirable 200-240 mg/dL Borderline >240 mg/dL High Risk Triglyceride [Mass/Vol] 146 mg/dL <199 [facility] Comment on above: The drugs N-Acetylcy steine and Metamizole may falsely depress this assay.Serum Triglycerides Reference Interval Normal <150 mg/dL Borderline high 150 - 199 mg/dL High 200 - 499 mg/dL Very High > or = 500 mg/dL Laboratory - Chemistry and C hemistry - challengeOrdered By: Dr. Starr on 10-13-2022 ALT [Catalytic activity/Vol] 23 U/L 13-56 [facility] T4 [Mass/Vol] 9.4 ug/dL 4.8-13.9 [facility] No Panel InformationOrdered By: Dr. Starr on 10-13-2022 Thyroid Stimulating Hormone (TSH) 4.08 uIU/mL 0.358-3.74 [facility] Serum or plasma cholesterol in HDL measurement (mass/volume)Ordered By: Dr. Starr on 10-13-2022 Cholesterol in HDL [Mass/Vol] 60 mg/dL >40 [facility] Comment on above: The drugs N-Acetylcy steine and Metamizole may falsely depress this assay. Reference Range HDL <40 mg/dL Low HDL Cholesterol HDL >or= 60 mg/dL High HDL Cholesterol Serum or plasma cholesterol in VLDL measurement (mass/volume)Ordered By: Dr. Starr on 10-13-2022 Cholesterol in VLDL [Mass/Vol] 29 mg/dL 5-40 [facility] Serum or plasma low density lipoprotein (LDL) cholesterol measurement (mass/volume)Ordered By: Dr. Starr on 10-13-2022 Cholesterol in LDL [Mass/Vol] 124 mg/dL 0-130 [facility] Thin prep Papanicolaou smear with manual screeningOrdered By: Dr. Starr on 10-13-2022 Thin prep Papanicolaou smear with manual screening 27 U/L 15-37 [facility] - Chemistry and C hemistry - challengeOrdered By: Dr. Calvillo on 07-28-2022 Free T4 [Mass/Vol] 0.90 ng/dL 0.76-1.46 [facility] No Panel InformationOrdered By: Dr. Calvillo on 07-28-2022 Thyroid Stimulating Hormone (TSH) 3.45 uIU/mL 0.358-3.74 [facility] - Chemistry and C hemistry - challengeOrdered By: Dr. Calvillo on 04-21-2022 Free T4 [Mass/Vol] 1.33 ng/dL 0.76-1.46 [facility] No Panel InformationOrdered By: Dr. Calvillo on 04-21-2022 Thyroid Stimulating Hormone (TSH) 0.11 uIU/mL 0.358-3.74 [facility] - Chemistry and C hemistry - challengeon 02-16-2022 Free T4 [Mass/Vol] 0.72 ng/dL 0.76-1.46 [facility] Work Phone: No Panel Informationon 02-16 Free Triiodothyronine (T3) pg/dL 2.2 pg/mL 2.18-3.98 [facility] Work Phone: Thyroid Stimulating Hormone (TSH) 4.38 uIU/mL 0.358-3.74 [facility] Work Phone: Serum or plasma thyroperoxid ase antibody assay (units/volume)on 02-16-2022 TPO Ab Qn 286 [IU]/mL 0-34 [facility] Work Phone: Comment on above: Performed at: [address] [id number] Director: Jersey Guillen PhD, Phone: [phone] Basophil percentageon 2021 Cholesterol [Mass/Vol] 208 mg/dL <200 [facility] Work Phone: Comment on above: <200 mg/dL Desirable 200-240 mg/dL Borderline >240 mg/dL High Risk Triglyceride [Mass/Vol] 152 mg/dL <199 [facility] Work Phone: Comment on above: The drugs N-Acetylcy steine and Metamizole may falsely depress this assay.Serum Triglycerides Reference Interval Normal <150 mg/dL Borderline high 150 - 199 mg/dL High 200 - 499 mg/dL Very High > or = 500 mg/dL Laboratory - Chemistry and C hemistry - challengeon 12-16-2021 ALT [Catalytic activity/Vol] 27 U/L 13-56 [facility] Work Phone: T4 [Mass/Vol] 6.3 ug/dL 4.8-13.9 [facility] Work Phone: No Panel Informationon 12-16 Thyroid Stimulating Hormone (TSH) 5.67 uIU/mL 0.358-3.74 [facility] Work Phone: Serum or plasma cholesterol in HDL measurement (mass/volume)on 12-16-2021 Cholesterol in HDL [Mass/Vol] 65 mg/dL >40 [facility] Work Phone: Comment on above: The drugs N-Acetylcy steine and Metamizole may falsely depress this assay. Reference Range HDL <40 mg/dL Low HDL Cholesterol HDL >or= 60 mg/dL High HDL Cholesterol Serum or plasma cholesterol in VLDL measurement (mass/volume)on 12-16-2021 Cholesterol in VLDL [Mass/Vol] 30 mg/dL 5-40 [facility] Work Phone: Serum or plasma low density lipoprotein (LDL) cholesterol measurement (mass/volume)on 12-16-2021 Cholesterol in LDL [Mass/Vol] 113 mg/dL 0-130 [facility] Work Phone: Thin prep Papanicolaou smear with manual screeningon 12-16-2021 Thin prep Papanicolaou smear with manual screening 25 U/L 15-37 [facility] Work Phone: Vital Signs Date Time Vital Sign Value Performing Clinician Faci lity 01-24-2025 14:48-0400 Body height 162.[address] Enedelia Starr MD Work Phone: [facility] 01-24-2025 14:48-0400 Body mass index (BMI) [Ratio] 30.2 kg/m2 Dr. Enedelia Starr MD Work Phone: [facility] 01-24-2025 14:48-0400 Body temperature 97 [degF] Dr. Enedelia Starr MD Work Phone: [facility] 01-24-2025 14:48-0400 Body weight 79.[address] Enedelia Starr MD Work Phone: [facility] 01-24-2025 14:48-0400 Diastolic blood pressure 75 mm[Hg] Dr. Enedelia Starr MD Work Phone: [facility] 01-24-2025 14:48-0400 Heart rate 86 /min Dr. Enedelia Starr MD Work Phone: [facility] 01-24-2025 14:48-0400 Respiratory rate 16 /min Dr. Enedelia Starr MD Work Phone: [facility] 01-24-2025 14:48-0400 SaO2% (BldA) [Mass fraction] 95 % Dr. Enedelia Starr MD Work Phone: [facility] 01-24-2025 14:48-0400 Systolic blood pressure 120 mm[Hg] Dr. Enedelia Starr MD Work Phone: [facility] 02-17-2023 15:20-0400 Body height 162.[address] Enedelia Starr Work Phone: [facility] 02-17-2023 15:20-0400 Body mass index (BMI) [Ratio] 30.5 kg/m2 Dr. Enedelia Starr Work Phone: [facility] 02-17-2023 15:20-0400 Body temperature 98 [degF] Dr. Enedelia Starr Work Phone: [facility] 02-17-2023 15:20-0400 Body weight 80.[address] Enedelia Starr Work Phone: [facility] 02-17-2023 15:20-0400 Diastolic blood pressure 78 mm[Hg] Dr. Enedelia Starr Work Phone: [facility] 02-17-2023 15:20-0400 Heart rate 72 /min Dr. Enedelia Starr Work Phone: [facility] 02-17-2023 15:20-0400 Respiratory rate 18 /min Dr. Enedelia Starr Work Phone: [facility] 02-17-2023 15:20-0400 SaO2% (BldA) [Mass fraction] 98 % Dr. Enedelia Starr Work Phone: [facility] 02-17-2023 15:20-0400 Systolic blood pressure 116 mm[Hg] Dr. Enedelia Starr Work Phone: [facility] 01-29-2022 13:25-0400 Body height 162.[address] Enedelia Starr Work Phone: [facility] Work Phone: 01-29-2022 13:25-0400 Body mass index (BMI) [Ratio] 28.7 kg/m2 Dr. Enedelia Starr Work Phone: [facility] Work Phone: 01-29-2022 13:25-0400 Body temperature 96.5 [degF] Dr. Enedelia Starr Work Phone: [facility] Work Phone: 01-29-2022 13:25-0400 Body weight 75.[address] Enedelia Starr Work Phone: [facility] Work Phone: 01-29-2022 13:25-0400 Diastolic blood pressure 84 mm[Hg] Dr. Enedelia Starr Work Phone: [facility] Work Phone: 01-29-2022 13:25-0400 Heart rate 75 /min Dr. Enedelia Starr Work Phone: [facility] Work Phone: 01-29-2022 13:25-0400 Respiratory rate 18 /min Dr. Enedelia Starr Work Phone: [facility] Work Phone: 01-29-2022 13:25-0400 SaO2% (BldA) [Mass fraction] 98 % Dr. Enedelia Starr Work Phone: [facility] Work Phone: 01-29-2022 13:25-0400 Systolic blood pressure 131 mm[Hg] Dr. Enedelia Starr Work Phone: [facility] Work Phone: Encounters Encounter Date Encounter Type Care Provider Facility Start: 01-24-2025 End: 01-24-[address] Jesus Kirk MD -[facility] Start: 01-24-2025 End: 01-24-2025 ambulatory Jesus Kirk Facility:[facility] Start: 01-24-2025 Encounter for genera l adult medical examination without abnormal findings Jesus Kirk [facility] Start: 01-24-2025 End: 01-24-[address] Jesus Kirk MD -[facility] Work Phone: Start: 01-24-2025 End: 01-24-[address] Jesus Kirk MD [facility] Start: 01-24-2025 End: 01-24-[address] Enedelia Starr MD Work Phone: -[facility] Start: 02-23-2024 End: 02-23-2024 ambulatory Enedelia Starr Facility:[facility] Start: 10-24-2023 End: 10-24-2023 ambulatory [facility] Work Phone: Start: 10-24-2023 End: 10-24-2023 Patient encounter procedure [facility] Work Phone: Start: 10-17-2023 End: 10-17-2023 ambulatory [facility] Work Phone: Start: 10-17-2023 End: 10-17-2023 Patient encounter procedure [facility] Start: 04-20-2023 End: 04-20-[address] Enedelia Starr Work Phone: [facility] Work Phone: Start: 04-20-2023 End: 04-20-[address] Enedelia Starr Work Phone: [facility] Start: 02-17-2023 End: 02-17-[address] Enedelia Starr Work Phone: [facility] Work Phone: Start: 10-13-2022 End: 10-13-2022 ambulatory [facility] Work Phone: Start: 10-13-2022 End: 10-13-2022 Patient encounter procedure [facility] Start: 07-28-2022 End: 07-28-2022 ambulatory [facility] Work Phone: Start: 07-28-2022 End: 07-28-2022 Patient encounter procedure [facility] Start: 04-21-2022 End: 04-21-[address] Enedelia Starr Work Phone: [facility] Work Phone: Start: 04-21-2022 End: 04-21-[address] Enedelia Starr Work Phone: [facility] Start: 02-16-2022 End: 02-16-[address] Enedelia Starr Work Phone: [facility] Work Phone: Start: 02-16-2022 End: 02-16-[address] Enedelia Starr Work Phone: [facility] Start: 01-29-2022 End: 01-29-[address] Enedelia Starr Work Phone: [facility] Start: 12-16-2021 End: 12-16-2021 Patient encounter procedure [facility] Procedures Date Procedure Procedure Detail Performing Clinician Start: 10-24-2023 Screening mammography Plan of Treatment Date Care Activity Detail Author Start: 02-01-2025 MG Breast - bilateral Screening [facility] CBC W Auto Different ial panel - Blood [facility] Comprehensive metabo lic 2000 panel - Serum or Plasma [facility] Lipid 1996 panel - S gloria or Plasma [facility] MG Breast - bilateral Screening [facility] Thyroid stimulating hormone measurement [facility] Payers Date Payer Category Payer Self-pay [id number] 2024 Unknown [id number] Unknown [id number] Unknown [id number] Unknown [id number] Social History Date Type Detail [facility] Work Phone: Start: 1980 Sex Assigned At Female [facility] Start: 01-29-2022 End: 02-17-2023 Tobacco smoking status [facility] Unknown if ever smoked [facility] Start: 02-17-2023 Tobacco smoking stat [facility] Never smoked tobacco (finding) [facility] Evaluation note 01-24-2025 Note Date & Type Note Facility 01-24-2025 Evaluation note Diagnosis Onset Date Resolution Encounter to [facility] acute January 24, 2025 2:18pm Head pain acute January 24 2:18pm Hyperlipidemia acute January 24, 2025 2:18pm Hypothyroidism acute January 24, 2025 2:18pm Obesity acute January 24 2:18pm Preventative health care acute January 24, 2025 2:18pm [facility] Work Phone: Evaluation note Note Date & Type Note Facility Evaluation note No assessment information availa [facility] Work Phone: Evaluation note Note Date & Type Note Facility Evaluation note Diagnosis Onset Date Abnormal results of thyroid function studies acute [facility] Work Phone: Evaluation note Note Date & Type Note Facility Evaluation note Diagnosis Onset Date 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 [facility] Work Phone: Hospital Discharge instructions Note Date & Type Note Facility Hospital Discharge instructions Ambulatory OrdersDermatology Location: None Selected [facility] Work Phone: Chief Complaint and Reason for Visit Chief Complaint CURTAIN FITTER, HYPOTHYROID, NPP MAILED Abnormal results of thyroid function studies Reason for Visit Abnormal results of thyroid function studies Chief Complaint CURTAIN FITTER, HYPOTHYROID, NPP MAILED Abnormal results of thyroid function studies Chief Complaint 1 Y FU Reason for Visit Hypothyroidism due t o Vincent's thyroiditis Chief Complaint SCREENING Chief Complaint Admit Date [facility]TAIN [facility]TER. [facility] SENT January 24, 2025 2:18pm Reason for Visit Admit Date Encounter to [facility] January 24, 2 025 2:18pm Head pain January 24, 2025 2:18 pm Hyperlipidemia January 24, 2025 2:18 pm Hypothyroidism January 24, 2025 2:18 pm Obesity January 24, 2025 2:18 pm Preventative health care January 24, 2025 2:18pm Family History Relationship Condition Age at Onset Recorded Date/T francisco Not Specified High blood cholesterol Unknown Arthritis Unknown Venous thrombosis Unknown Disorder of thyroid Unknown Relationship Condition Age at Onset Recorded Date/T francisco Not Specified Arthritis Unknown Venous thrombosis Unknown mother High blood cholesterol Unknown Disorder of thyroid Unknown father History of blood coagulation disorder Unk nown High blood cholesterol Unknown Myocardial infarction Unknown Summary Purpose Advance Directives No Advanced Directives Records Found Additional Source Comments Goals (unrecognized section and content) Goals may be documented in a n alternate sectionGoals may be documented in an alternate sectionGoals may be documented in an alternate sectionGoals may be documented in an alternate sectionGoals may be documented in an alternate sectionGoals may be documented in an alternate sectionGoals may be documented in an alternate sectionGoals may be documented in an alternate sectionGoals may be documented in an alternate sectionGoals may be documented in an alternate section Care Teams (unrecognized sec tion and content) Team Status: Active Member Role Status Dates Dr. Enedelia Starr MD Family Provider Active Dr. Enedelia Starr MD Primary Care Provider Active Team Status: Inactive Member Role Status Dates Dr. Enedelia Starr MD Primary Care Provider, Referrin g Provider Active Dr. Doroteo Calvillo MD Attending Provider Active Team Status: Inactive Member Role Status Dates Dr. Enedelia Starr MD Primary Care Provider, Attendin g Provider Active Team Status: Inactive Member Role Status Dates Dr. Enedelia Starr MD Primary Care Prov ider, Attending Provider, Referring Provider Active Team Status: Active Member Role/Relationship Status Dates Dr. Enedelia Starr MD Family Provider Active Dr. Enedelia Starr MD Primary Care Provider Active Team Status: Inactive Member Role/Relationship Status Dates Dr. Enedelia Starr MD Primary Care Provider Active Start: January 24, 2025 End: January 24, 2025 Dr. Enedelia Starr MD Referring Provider Active Start: January 24, 2025 End: January 24, 2025 Dr. Jesus Kirk MD Attending Provider Active Start: January 24, 2025 End: January 24, 2025 Team Status: Active Member Role/Relationship Status Dates Dr. Jesus Kirk MD Primary Care Provider Active Team Status: Inactive Member Role/Relationship Status Dates Dr. Jesus Kirk MD Primary Care Provider Active Start: January 24, 2025 End: January 24, 2025 Dr. Jesus Kirk MD Attending Provider Active Start: January 24, 2025 End: January 24, 2025 INFORMATION SOURCE (unrecogn ized section and content) DATE CREATED AUTHOR 01/26/2025 [facility] FOR RECORDS PERTAINING TO PATIENTS WHO ARE OR HAVE BEEN ENROLLED IN A CHEMICAL DEPENDENCY/SUBSTANCEABUSE PROGRAM, SOME INFORMATION MAY BE OMITTED. This clinical summary was aggregated from multiple sources. Caution should be exercised in using it in the provision of clinical care. This summary normalizes information from multiple sources, and as a consequence, information in this document may materially change the coding, format and clinical context of patient data. In addition, data may be omitted in some cases. CLINICAL DECISIONS SHOULD BE BASED ON THE PRIMARY CLINICAL RECORDS. [employer] provides no warranty or guarantee of the accuracy or completeness of information in this document.
--- OUTSIDE RECORDS SUMMARY | 2025-02-01 16:20 | XMS RPT_ITS | CCD ---
Author Organization [facility] Care Team Providers Care Shirt Sorter Name Role Phone Dr. Enedelia Starr Primary Care Provider Dr. Enedelia Starr Referring Provider [phone] Dr. Doroteo Calvillo Attending Provider Dr. Enedelia Starr MD Primary Care Provider [phone] Dr. Enedelia Starr MD Referring Provider Reagan GARDNER, Dr. Lee Attending Provider Enedelia [...] 29, 2022 12:00am January 24, 2025 2:39pm [employer] (9 sources) Start: 01-29-2022 End: 02-17-2023 JS [...] Auto (Unsp spec) [#/Vol] 2.09 10*3/uL 0.83-4.51 [facility] Absolute neutrophil countOrd ered By: Jesus Kirk on 01-24-2025 Neutrophils (Bld) [#/Vol] 3.4 10*3/uL 2.0-7.7 [facility] Anion gap in Serum or Plasma Ordered By: Jesus Kirk on 01-24-2025 Anion gap [Moles/Vol] 13 mmol/L 5-15 [facility] Automated lymphocyte count a s percentage of total leukocytesOrdered By: Jesus Kirk on 01-24-2025 Lymphocytes/100 WBC Auto (Unsp spec) 34.5 % 19-41 [facility] BUN/creatinine ratioOrdered By: Jesus Kirk on 01-24-2025 Urea nitrogen/Creatinine [Mass ratio] 8.8 mg/mg Low 10-20 [facility] Basophil percentageOrdered B y: Jesus Kirk on 01-24-2025 Basophils/100 WBC (Bld) 0.7 % 0-1 [facility] Blood manual differential co mment interpretation (narrative result)Ordered By: Jesus Kirk on 01-24-2025 Manual differential comment Skinny (Bld) [Interp] SCANNED [facility] CBC W/Diff, Automatedon 07- PLT EST ADEQUATE Normal ADEQ [facility] Comment on above: Performed By: #### L 501.9520, L100.0100, L500.4100, L500.4050 #### [facility] [address] [place], [address] SMEAR COMMENT SCANNED Normal [facility] Comment on above: Performed By: #### L 501.9520, L100.0100, L500.4100, L500.4050 #### [facility] [address] [place], [address] Calculated very low density lipoprotein (VLDL) cholesterol measurementOrdered By: Jesus Kirk on 01-24-2025 Calculated very low density lipoprotein (VLDL) cholesterol measurement 27 mg/dL 5-40 [facility] Comprehensive Metabolic Prof ilon 01-24-2025 ALK PHOS 62 U/L Normal 35-104 [facility] Comment on above: Performed By: #### L 501.9520, L100.0100, L500.4100, L500.4050 #### [facility] [address] [place], [address] BUN/CRE 8.8 RATIO Low 10-20 [facility] Comment on above: Performed By: #### L 501.9520, L100.0100, L500.4100, L500.4050 #### [facility] [address] [place], [address] GAP 13 Normal 5-15 [facility] Comment on above: Performed By: #### L [id number], L100.0100, L500.4100, L500.4050 #### [facility] [address] [place], [address] Potassium [Moles/Vol] 4.3 mmol/L Normal 3.3-5.1 [facility] Comment on above: Performed By: #### L 501.9520, L100.0100, L500.4100, L500.4050 #### [facility] [address] [place], [address] T PROT 8.3 g/dL Normal 5.9-8.4 [facility] Comment on above: Performed By: #### L 501.9520, L100.0100, L500.4100, L500.4050 #### [facility] [address] [place], [address] Comprehensive Metabolic Prof ilOrdered By: Jesus Kirk on 01-24-2025 Albumin [Mass/Vol] 4.7 g/dL 3.5-5.0 [facility] Comment on above: Performed By: #### L 501.9520, L100.0100, L500.4100, L500.4050 #### [facility] [address] [place], [address] Albumin/Globulin [Mass ratio] 1.3 {ratio} 0.9-2.4 [facility] Comment on above: Performed By: #### L 501.9520, L100.0100, L500.4100, L500.4050 #### [facility] [address] [place], [address] ALT [Catalytic activity/Vol] 21 U/L <35 [facility] Comment on above: Performed By: #### L 501.9520, L100.0100, L500.4100, L500.4050 #### [facility] [address] [place], [address] AST [Catalytic activity/Vol] 33 U/L High <32 [facility] Comment on above: Performed By: #### L 501.9520, L100.0100, L500.4100, L500.4050 #### [facility] [address] [place], [address] Bilirubin [Mass/Vol] 0.63 mg/dL 0.00-1.30 [facility] Comment on above: Performed By: #### L 501.9520, L100.0100, L500.4100, L500.4050 #### [facility] [address] [place], [address] Calcium [Mass/Vol] 10.1 mg/dL 7.6-11.0 [facility] Comment on above: Performed By: #### L 501.9520, L100.0100, L500.4100, L500.4050 #### [facility] [address] [place], [address] Chloride [Moles/Vol] 102 mmol/L 98-108 [facility] Comment on above: Performed By: #### L 501.9520, L100.0100, L500.4100, L500.4050 #### [facility] [address] [place], [address] CO2 [Moles/Vol] 23.6 mmol/L 21.0-32.0 [facility] Comment on above: Performed By: #### L 501.9520, L100.0100, L500.4100, L500.4050 #### [facility] [address] [place], [address] Creatinine [Mass/Vol] 1.10 mg/dL 0.70-1.20 [facility] Comment on above: Performed By: #### L 501.9520, L100.0100, L500.4100, L500.4050 #### [facility] [address] [place], [address] GFR/1.73 sq M.predicted among non-blacks MDRD (S/P/Bld) [Vol rate/Area] 64 mL/min/{1.73_m2} >60 [facility] Comment on above: Result Comment: mL/m in/1.73m2 CKD-EPI Creatinine Equation (2020) Performed By: #### L 501.9520, L100.0100, L500.4100, L500.4050 #### [facility] [address] [place], [address] mL/min/1.73m2 CKD-EP I Creatinine Equation (2020) Globulin (S) [Mass/Vol] 3.6 g/dL 2.2-4.[address] [facility] Comment on above: Performed By: #### L 501.9520, L100.0100, L500.4100, L500.4050 #### [facility] [address] [place], [address] Glucose [Mass/Vol] 97 mg/dL 70-99 [facility] Comment on above: Performed By: #### L 501.9520, L100.0100, L500.4100, L500.4050 #### [facility] [address] [place], [address] Sodium [Moles/Vol] 138 mmol/L 133-145 [facility] Comment on above: Performed By: #### L 501.9520, L100.0100, L500.4100, L500.4050 #### [facility] [address] [place], [address] Urea nitrogen [Mass/Vol] 10 mg/dL 4-19 [facility] Comment on above: Performed By: #### L 501.9520, L100.0100, L500.4100, L500.4050 #### [facility] [address] [place], [address] Eosinophil percentageOrdered By: Jesus Kirk on 01-24-2025 Eosinophils/100 WBC (Bld) 1.3 % 0-5 [facility] Erythrocyte distribution wid th ratioOrdered By: Jesus Kirk on 01-24-2025 Erythrocyte distribution width (RBC) [Ratio] 12.9 % 11.6-14.6 [facility] Erythrocyte distribution wid th standard deviationOrdered By: Jesus Kirk on 01-24-2025 Erythrocyte distribution width (RBC) [Ratio] 42.7 fl 35.1-43.9 [facility] Hematocrit Auto (Bld) [Volum e fraction]Ordered By: Jesus Kirk on 01-24-2025 Hematocrit (Bld) [Volume fraction] 39.6 % 37-47 [facility] Hemoglobin measurementOrdere d By: Jesus Kirk on 01-24-2025 Hemoglobin (Bld) [Mass/Vol] 13.2 g/dL 12.0-15.0 [facility] Immature granulocytes/100 WB C Auto (Bld)Ordered By: Jesus Kirk on 01-24-2025 Immature granulocytes/100 WBC (Bld) 0.300 % 0.0-0.9 [facility] Comment on above: IG% - Immature Granu locytes (promyelocytes, myelocytes and metamyelocytes) > 1% indicates that a LEFT SHIFT is Present. Internal Medicine Office Vis itoalbaro 01-24-2025 Internal Medicine Office Visit [facility] [place] [address] [place] [address] OFFICE VISIT Date of Service: 01/24/25 MR#: [id number] Acct: [id number] Name: YVONNE THACKER ALEX Rep #: [id number] : 1980 Provider: Dr. 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 Normal [facility] Lipid Profileon 01-24-2025 CHOL:HDL 3.13 Normal [facility] Comment on above: Performed By: #### L 501.9520, L100.0100, L500.4100, L500.4050 #### [facility] [place], [address] Cholesterol in VLDL [Mass/Vol] 27 mg/dL Normal 5-40 [facility] Comment on above: Performed By: #### L 501.9520, L100.0100, L500.4100, L500.4050 #### [facility] [address] [place], [address] Lipid ProfileOrdered By: Yandel Kirk on 01-24-2025 Cholesterol [Mass/Vol] 209 mg/dL High <201 [facility] Comment on above: Result Comment: Chol esterol level, Desirable <200 mg/dL Borderline high cholesterol 200-239 mg/dL High cholesterol >=240 mg/dL Recommendations of the NCEP Adult Treatment Panel for the following risk-cutoff thresholds for the [place] population. Performed By: #### L 501.9520, L100.0100, L500.4100, L500.4050 #### [facility] [address] [place], [address] Cholesterol level, D esirable <200 mg/dLBorderline high cholesterol 200-239 mg/dLHigh cholesterol >=240 mg/dLRecommendations of the NCEP Adult Treatment Panel for the following risk-cutoff thresholds for the [place] population. Cholesterol in HDL [Mass/Vol] 67 mg/dL >40 [facility] Comment on above: Result Comment: No onal Cholesterol Education Program (NCEP) guidelines: <40 mg/dL: Low HDL-cholesterol (major risk factor for CHD) >= 60 mg/dL: High HDL-cholesterol (negative risk factor for CHD) HDL-cholesterol is affected by a number of factors, e.g. smoking, exercise, hormones, sex and age. Performed By: #### L 501.9520, L100.0100, L500.4100, L500.4050 #### [facility] [address] [place], [address] National Cholesterol Education Program (NCEP) guidelines:<40 mg/dL: Low HDL-cholesterol (major risk factor for CHD)>= 60 mg/dL: High HDL-cholesterol (negative risk factor for CHD)HDL-cholesterol is affected by a number of factors, e.g. smoking, exercise, hormones, sex and age. Cholesterol in LDL [Mass/Vol] 115 mg/dL [facility] Comment on above: Result Comment: Bord bxfqai=962-008 mg/dL Higher Ryos=901 mg/dL or greater Friedwald Equation for LDL-C Performed By: #### L 501.9520, L100.0100, L500.4100, L500.4050 #### [facility] [address] [place], [place], [address] Dmctbpflll=134-278 m g/dL & Higher Qivc=436 mg/dL or greaterFriedwald Equation for LDL-C Triglyceride [Mass/Vol] 136 mg/dL <[address] [facility] Comment on above: Result Comment: The drugs N-Acetylcysteine and Metamizole may falsely depress this assay. Normal range: <150 mg/dL Borderline High: 150-199 mg/dL High: 200-499 mg/dL Very High: >500 mg/dL Performed By: #### L 501.9520, L100.0100, L500.4100, L500.4050 #### [facility] [address] [place], [place], [address] The drugs N-Acetylcy steine and Metamizole may falsely depress this assay. Normal range: <150 mg/dLBorderline High: 150-199 mg/dLHigh: 200-499 mg/dLVery High: >500 mg/dL MCV (mean corpuscular volume ) determinationOrdered By: Jesus Kirk on 01-24-2025 MCV (RBC) [Entitic vol] 90.8 fL 81-99 [facility] Mean corpuscular hemoglobin (MCH) determinationOrdered By: Jesus Kirk on 01-24-2025 MCH (RBC) [Entitic mass] 30.3 pg 27.0-32.0 [facility] Mean corpuscular hemoglobin concentration (MCHC) determinationOrdered By: Jesus Kirk on 01-24-2025 MCHC (RBC) [Mass/Vol] 33.3 g/dL 32-36 [facility] Mean platelet volume determi nationOrdered By: Jesus Kirk on 01-24-2025 [facility] Comment on above: Test not performed Monocyte percentageOrdered B y: Jesus Kirk on 01-24-2025 Monocytes/100 WBC (Bld) 7.4 % 0-[address] [facility] Neutrophil percentageOrdered By: Jesus Kirk on 01-24-2025 Neutrophils/100 WBC (Bld) 55.8 % 47-70 [facility] Nucleated red blood cell per centageOrdered By: Jesus Kirk on 01-24-2025 Nucleated RBC/100 WBC (Bld) [Ratio] 0 % 0-5 [facility] Platelet countOrdered By: Deedee Kirk on 01-24-2025 Platelet count TNP [facility] Comment on above: Test not performedPl [...] 01-24-2025 Platelets LM Ql (Bld) ADEQUATE ADEQ [facility] Potassium measurement (mass/ volume)Ordered By: Jesus Kirk on 01-24-2025 Potassium (Unsp spec) [Mass/Vol] 4.3 mmol/L 3.3-5.1 [facility] RBC Auto (Bld) [#/Vol]Ordere d By: Jesus Kirk on 01-24-2025 RBC (Bld) [#/Vol] 4.36 10*6/uL 4.2-5.4 [facility] Screening total cholesterol/ high density lipoprotein (HDL) cholesterol ratioOrdered By: Jesus Kirk on 01-24-2025 Cholesterol.total/Choles terol in HDL [Mass ratio] 3.13 {ratio} [facility] Serum or plasma alkaline max sphatase measurementOrdered By: Jesus Kirk on 01-24-2025 ALP [Catalytic activity/Vol] 62 U/L 35-104 [facility] TSH DL <= 0.005 mIU/L QnOrde red By: Jesus Kirk on 01-24-2025 TSH Qn 3.970 uIU/mL 0.300-4.200 [facility] Thyroid Stim Hormone (TSH)on 01-24-2025 TSH 3.970 uIU/mL Normal 0.300-4.200 [facility] Comment on above: Performed By: #### L 501.9520, L100.0100, L500.4100, L500.4050 #### [facility] [address] [place], [address] Total proteinOrdered By: Yandel Kirk on 01-24-2025 Protein [Mass/Vol] 8.3 g/dL 5.9-8.4 [facility] White blood cell (WBC) count Ordered By: Jesus Kirk on 01-24-2025 WBC (Bld) [#/Vol] 6.1 10*3/uL 4.4-11.0 [facility] Lipid Profileon 02-23-2024 Cholesterol [Mass/Vol] 189 mg/dL Normal 200 [facility] Comment on above: Order Comment: Order Date: 12/19/23 Order Info: [id number] - LIPID Result Comment: <200 mg/dL Desirable 200-240 mg/dL Borderline >240 mg/dL High Risk Performed By: #### L 500.4100 #### [facility] [address] [place], [address] Cholesterol in HDL [Mass/Vol] 59 mg/dL Normal [facility] Comment on above: Order Comment: Order Date: 12/19/23 Order Info: [id number] - LIPID Result Comment: The drugs N-Acetylcysteine and Metamizole may falsely depress this assay. Reference Range HDL <40 mg/dL Low HDL Cholesterol HDL >or= 60 mg/dL High HDL Cholesterol Performed By: #### L 500.4100 #### [facility] [address] [place], [address] Cholesterol in LDL [Mass/Vol] 109 mg/dL Normal 0-130 [facility] Comment on above: Order Comment: Order Date: 12/19/23 Order Info: [id number] - LIPID Performed By: #### L 500.4100 #### [facility] [address] [place], [place], [address] Cholesterol in VLDL [Mass/Vol] 21 mg/dL Normal 5-40 [facility] Comment on above: Order Comment: Order Date: 12/19/23 Order Info: [id number] - LIPID Performed By: #### L 500.4100 #### [facility] [address] [place], [address] Triglyceride [Mass/Vol] 104 mg/dL Normal [facility] Comment on above: Order Comment: Order Date: 12/19/23 Order Info: [id number] - LIPID Result Comment: The drugs N-Acetylcysteine and Metamizole may falsely depress this assay. Serum Triglycerides Reference Interval Normal <150 mg/dL Borderline high 150 - 199 mg/dL High 200 - 499 mg/dL Very High > or = 500 mg/dL Performed By: #### L 500.4100 #### [facility] [address] [place], [address] Basophil percentageOrdered B y: Enedelia Starr on 10-17-2023 Cholesterol [Mass/Vol] 221 mg/dL <200 [facility] Comment on above: <200 mg/dL Desirable 200-240 mg/dL Borderline >240 mg/dL High Risk Triglyceride [Mass/Vol] 132 mg/dL <[address] [facility] Comment on above: The drugs N-Acetylcy steine and Metamizole may falsely depress this assay.Serum Triglycerides Reference Interval Normal <150 mg/dL Borderline high 150 - 199 mg/dL High 200 - 499 mg/dL Very High > or = 500 mg/dL Laboratory - Chemistry and C hemistry - challengeOrdered By: Enedelia Starr on 10-17-2023 ALT [Catalytic activity/Vol] 28 U/L 13-56 [facility] Cholesterol in HDL [Mass/Vol] 63 mg/dL >40 [facility] Comment on above: The drugs N-Acetylcy steine and Metamizole may falsely depress this assay. Reference Range HDL <40 mg/dL Low HDL Cholesterol HDL >or= 60 mg/dL High HDL Cholesterol Cholesterol in LDL [Mass/Vol] 132 mg/dL 0-130 [facility] No Panel InformationOrdered By: Enedelia Starr on 10-17-2023 VLDL Cholesterol 26 mg/dL 5-40 [facility] Serum or plasma thyroid stim ulating hormone (TSH) measurement (units/volume)Ordered By: Enedelia Starr on 10-17-2023 TSH Qn 1.75 uIU/mL 0.358-3.74 [facility] Serum or plasma thyroxine (T 4) measurement (mass/volume)Ordered By: Enedelia Starr on 10-17-2023 T4 [Mass/Vol] 10.0 ug/dL 4.8-13.9 [facility] Thin prep Papanicolaou smear with manual screeningOrdered By: Enedelia Starr on 10-17-2023 Thin prep Papanicolaou smear with manual screening 31 U/L 15-37 [facility] No Panel InformationOrdered By: Enedelia Starr on 04-20-2023 Thyroid Stimulating Hormone (TSH) 1.66 uIU/mL 0.358-3.74 [facility] Basophil percentageOrdered B y: Dr. Starr on 10-13-2022 Cholesterol [Mass/Vol] 213 mg/dL <200 [facility] Comment on above: <200 mg/dL Desirable 200-240 mg/dL Borderline >240 mg/dL High Risk Triglyceride [Mass/Vol] 146 mg/dL <[address] [facility] Comment on above: The drugs N-Acetylcy steine and Metamizole may falsely depress this assay.Serum Triglycerides Reference Interval Normal <150 mg/dL Borderline high 150 - 199 mg/dL High 200 - 499 mg/dL Very High > or = 500 mg/dL Laboratory - Chemistry and C hemistry - challengeOrdered By: Dr. Starr on 10-13-2022 ALT [Catalytic activity/Vol] 23 U/L 13-56 [facility] T4 [Mass/Vol] 9.4 ug/dL 4.8-13.9 [facility] No Panel InformationOrdered By: Dr. Starr on 10-13-2022 Thyroid Stimulating Hormone (TSH) 4.08 uIU/mL 0.358-3.74 [facility] Serum or plasma cholesterol in HDL measurement (mass/volume)Ordered By: Dr. Starr on 10-13-2022 Cholesterol in HDL [Mass/Vol] 60 mg/dL >40 [facility] Comment on above: The drugs N-Acetylcy steine and Metamizole may falsely depress this assay. Reference Range HDL <40 mg/dL Low HDL Cholesterol HDL >or= 60 mg/dL High HDL Cholesterol Serum or plasma cholesterol in VLDL measurement (mass/volume)Ordered By: Dr. Starr on 10-13-2022 Cholesterol in VLDL [Mass/Vol] 29 mg/dL 5-40 [facility] Serum or plasma low density lipoprotein (LDL) cholesterol measurement (mass/volume)Ordered By: Dr. Starr on 10-13-2022 Cholesterol in LDL [Mass/Vol] 124 mg/dL 0-130 [facility] Thin prep Papanicolaou smear with manual screeningOrdered By: Dr. Starr on 10-13-2022 Thin prep Papanicolaou smear with manual screening 27 U/L 15-37 [facility] Laboratory - Chemistry and C hemistry - challengeOrdered By: Dr. Calvillo on 07-28-2022 Free T4 [Mass/Vol] 0.90 ng/dL 0.76-1.46 [facility] No Panel InformationOrdered By: Dr. Calvillo on 07-28-2022 Thyroid Stimulating Hormone (TSH) 3.45 uIU/mL 0.358-3.74 [facility] - Chemistry and C hemistry - challengeOrdered By: Dr. Calvillo on 04-21-2022 Free T4 [Mass/Vol] 1.33 ng/dL 0.76-1.46 [facility] No Panel InformationOrdered By: Dr. Calvillo on 04-21-2022 Thyroid Stimulating Hormone (TSH) 0.11 uIU/mL 0.358-3.74 [facility] - Chemistry and C hemistry - challengeon 02-16-2022 Free T4 [Mass/Vol] 0.72 ng/dL 0.76-1.46 [facility] Work Phone: No Panel Informationon 02-16 Free Triiodothyronine (T3) pg/dL 2.2 pg/mL 2.18-3.98 [facility] Work Phone: Thyroid Stimulating Hormone (TSH) 4.38 uIU/mL 0.358-3.74 [facility] Work Phone: Serum or plasma thyroperoxid ase antibody assay (units/volume)on 02-16-2022 TPO Ab Qn 286 [IU]/mL 0-34 [facility] Work Phone: Comment on above: Performed at: [address] [id number] Director: Jersey Guillen PhD, Phone: [phone] Basophil percentageon 2021 Cholesterol [Mass/Vol] 208 mg/dL <200 [facility] Work Phone: Comment on above: <200 mg/dL Desirable 200-240 mg/dL Borderline >240 mg/dL High Risk Triglyceride [Mass/Vol] 152 mg/dL <[address] [facility] Work Phone: Comment on above: The drugs N-Acetylcy steine and Metamizole may falsely depress this assay.Serum Triglycerides Reference Interval Normal <150 mg/dL Borderline high 150 - 199 mg/dL High 200 - 499 mg/dL Very High > or = 500 mg/dL Laboratory - Chemistry and C hemistry - challengeon 12-16-2021 ALT [Catalytic activity/Vol] 27 U/L 13-56 [facility] Work Phone: T4 [Mass/Vol] 6.3 ug/dL 4.8-13.9 [facility] Work Phone: No Panel Informationon 12-16 Thyroid Stimulating Hormone (TSH) 5.67 uIU/mL 0.358-3.74 [facility] Work Phone: Serum or plasma cholesterol in HDL measurement (mass/volume)on 12-16-2021 Cholesterol in HDL [Mass/Vol] 65 mg/dL >40 [facility] Work Phone: Comment on above: The drugs N-Acetylcy steine and Metamizole may falsely depress this assay. Reference Range HDL <40 mg/dL Low HDL Cholesterol HDL >or= 60 mg/dL High HDL Cholesterol Serum or plasma cholesterol in VLDL measurement (mass/volume)on 12-16-2021 Cholesterol in VLDL [Mass/Vol] 30 mg/dL 5-40 [facility] Work Phone: Serum or plasma low density lipoprotein (LDL) cholesterol measurement (mass/volume)on 12-16-2021 Cholesterol in LDL [Mass/Vol] 113 mg/dL 0-130 [facility] Work Phone: Thin prep Papanicolaou smear with manual screeningon 12-16-2021 Thin prep Papanicolaou smear with manual screening 25 U/L 15-37 [facility] Work Phone: Vital Signs Date Time Vital Sign Value Performing Clinician Faci lity 01-24-2025 14:48-0400 Body height 162.[address] Enedelia Starr MD Work Phone: [facility] 01-24-2025 14:48-0400 Body mass index (BMI) [Ratio] 30.2 kg/m2 Dr. Enedelia Starr MD Work Phone: [facility] 01-24-2025 14:48-0400 Body temperature 97 [degF] Dr. Enedelia Starr MD Work Phone: [facility] 01-24-2025 14:48-0400 Body weight 79.[address] Enedelia Starr MD Work Phone: [facility] 01-24-2025 14:48-0400 Diastolic blood pressure 75 mm[Hg] Dr. Enedelia Starr MD Work Phone: [facility] 01-24-2025 14:48-0400 Heart rate 86 /min Dr. Enedelia Starr MD Work Phone: [facility] 01-24-2025 14:48-0400 Respiratory rate 16 /min Dr. Enedelia Starr MD Work Phone: [facility] 01-24-2025 14:48-0400 SaO2% (BldA) [Mass fraction] 95 % Dr. Enedelia Starr MD Work Phone: [facility] 01-24-2025 14:48-0400 Systolic blood pressure 120 mm[Hg] Dr. Enedelia Starr MD Work Phone: [facility] 02-17-2023 15:20-0400 Body height 162.[address] Enedelia Starr Work Phone: [facility] 02-17-2023 15:20-0400 Body mass index (BMI) [Ratio] 30.5 kg/m2 Dr. Enedelia Starr Work Phone: [facility] 02-17-2023 15:20-0400 Body temperature 98 [degF] Dr. Enedelia Starr Work Phone: [facility] 02-17-2023 15:20-0400 Body weight 80.[address] Enedelia Starr Work Phone: [facility] 02-17-2023 15:20-0400 Diastolic blood pressure 78 mm[Hg] Dr. Enedelia Starr Work Phone: [facility] 02-17-2023 15:20-0400 Heart rate 72 /min Dr. Enedelia Starr Work Phone: [facility] 02-17-2023 15:20-0400 Respiratory rate 18 /min Dr. Enedelia Starr Work Phone: [facility] 02-17-2023 15:20-0400 SaO2% (BldA) [Mass fraction] 98 % Dr. Enedelia Starr Work Phone: [facility] 02-17-2023 15:20-0400 Systolic blood pressure 116 mm[Hg] Dr. Enedelia Starr Work Phone: [facility] 01-29-2022 13:25-0400 Body height 162.[address] Enedelia Starr Work Phone: [facility] Work Phone: 01-29-2022 13:25-0400 Body mass index (BMI) [Ratio] 28.7 kg/m2 Dr. Enedelia Starr Work Phone: [facility] Work Phone: 01-29-2022 13:25-0400 Body temperature 96.5 [degF] Dr. Enedelia Starr Work Phone: [facility] Work Phone: 01-29-2022 13:25-0400 Body weight 75.[address] Enedelia Starr Work Phone: [facility] Work Phone: 01-29-2022 13:25-0400 Diastolic blood pressure 84 mm[Hg] Dr. Enedelia Starr Work Phone: [facility] Work Phone: 01-29-2022 13:25-0400 Heart rate 75 /min Dr. Enedelia Starr Work Phone: [facility] Work Phone: 01-29-2022 13:25-0400 Respiratory rate 18 /min Dr. Enedelia Starr Work Phone: [facility] Work Phone: 01-29-2022 13:25-0400 SaO2% (BldA) [Mass fraction] 98 % Dr. Enedelia Starr Work Phone: [facility] Work Phone: 01-29-2022 13:25-0400 Systolic blood pressure 131 mm[Hg] Dr. Enedelia Starr Work Phone: [facility] Work Phone: Encounters Encounter Date Encounter Type Care Provider Facility Start: 01-24-2025 End: 01-24-[address] Jesus Kirk MD -[facility] Start: 01-24-2025 End: 01-24-2025 ambulatory Jesus Kirk Facility:[facility] Start: 01-24-2025 Encounter for genera l adult medical examination without abnormal findings Jesus Kirk [facility] Start: 01-24-2025 End: 01-24-[address] Jesus Kirk MD -[facility] Work Phone: Start: 01-24-2025 End: 01-24-[address] Jesus Kirk MD [facility] Start: 01-24-2025 End: 01-24-[address] Enedelia Starr MD Work Phone: -[facility] Start: 02-23-2024 End: 02-23-2024 ambulatory Enedelia Starr Facility:[facility] Start: 10-24-2023 End: 10-24-2023 ambulatory [facility] Work Phone: Start: 10-24-2023 End: 10-24-2023 Patient encounter procedure [facility] Work Phone: Start: 10-17-2023 End: 10-17-2023 ambulatory [facility] Work Phone: Start: 10-17-2023 End: 10-17-2023 Patient encounter procedure [facility] Start: 04-20-2023 End: 04-20-[address] Enedelia Starr Work Phone: [facility] Work Phone: Start: 04-20-2023 End: 04-20-[address] Enedelia Starr Work Phone: [facility] Start: 02-17-2023 End: 02-17-[address] Enedelia Starr Work Phone: [facility] Work Phone: Start: 10-13-2022 End: 10-13-2022 ambulatory [facility] Work Phone: Start: 10-13-2022 End: 10-13-2022 Patient encounter procedure [facility] Start: 07-28-2022 End: 07-28-2022 ambulatory [facility] Work Phone: Start: 07-28-2022 End: 07-28-2022 Patient encounter procedure [facility] Start: 04-21-2022 End: 04-21-[address] Enedelia Starr Work Phone: [facility] Work Phone: Start: 04-21-2022 End: 04-21-[address] Enedelia Starr Work Phone: [facility] Start: 02-16-2022 End: 02-16-[address] Enedelia Starr Work Phone: [facility] Work Phone: Start: 02-16-2022 End: 02-16-[address] Enedelia Starr Work Phone: [facility] Start: 01-29-2022 End: 01-29-[address] Enedelia Starr Work Phone: [facility] Start: 12-16-2021 End: 12-16-2021 Patient encounter procedure [facility] Procedures Date Procedure Procedure Detail Performing Clinician Start: 10-24-2023 Screening mammography Plan of Treatment Date Care Activity Detail Author Start: 02-01-2025 MG Breast - bilateral Screening [facility] CBC W Auto Different ial panel - Blood [facility] Comprehensive metabo lic 2000 panel - Serum or Plasma [facility] Lipid 1996 panel - S gloria or Plasma [facility] MG Breast - bilateral Screening [facility] Thyroid stimulating hormone measurement [facility] Payers Date Payer Category Payer Self-pay [id number] 2024 Unknown [id number] Unknown [id number] Unknown [id number] Unknown [id number] Social History Date Type Detail [facility] Work Phone: Start: 1980 Sex Assigned At Female [facility] Start: 01-29-2022 End: 02-17-2023 Tobacco smoking status [facility] Unknown if ever smoked [facility] Start: 02-17-2023 Tobacco smoking stat [facility] Never smoked tobacco (finding) [facility] Evaluation note 01-24-2025 Note Date & Type Note Facility 01-24-2025 Evaluation note Diagnosis Onset Date Resolution Encounter to critical access hospital care acute January 24, 2025 2:18pm Head pain acute January 24 2:18pm Hyperlipidemia acute January 24, 2025 2:18pm Hypothyroidism acute January 24, 2025 2:18pm Obesity acute January 24 2:18pm Preventative health care acute January 24, 2025 2:18pm [facility] Work Phone: Evaluation note Note Date & Type Note Facility Evaluation note No assessment information availa [facility] Work Phone: Evaluation note Note Date & Type Note Facility Evaluation note Diagnosis Onset Date Abnormal results of thyroid function studies acute [facility] Work Phone: Evaluation note Note Date & Type Note Facility Evaluation note Diagnosis Onset Date 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 [facility] SENT January 24, 2025 2:18pm Reason for Visit Admit Date Encounter to critical access hospital care January 24, 2 025 2:18pm Head [...] section and content) DATE CREATED AUTHOR 01/26/2025 [facility] FOR RECORDS PERTAINING TO PATIENTS WHO [...] BE BASED ON THE PRIMARY CLINICAL RECORDS. [employer] provides no warranty or guarantee of the accuracy or completeness of information in this document.
== END | disposition home or self-care (01) ==
LOC: OPBI 15:36
PROVIDERS: PCP Internal Medicine; Referring Provider Internal Medicine; Visit Provider Internal Medicine
DX: Z12.31 Encounter for screening mammogram for malignant neoplasm of breast (principal)
CPT/HCPCS: 77063; 77067

== ENCOUNTER → 2025-06-17 | Outpatient (CLI) | payer OTHER, SELFPAY ==
--- NOTE | 2025-06-17 15:13 | RAD_ITS ---
PROCEDURE: CERV SPINE 4 OR 5 VIEWS 06/17/2025 REASON FOR EXAM: HEADACHE TECHNIQUE: Procedure Code: RADSPC Modality: DX Procedure: CERV SPINE 4 OR 5 VIEWS COMPARISON: None. FINDINGS: Straightening of the cervical spine. The odontoid process is intact. The cervical vertebral bodies are normal in height. There are scattered anterior osteophytes. Facet arthrosis and uncovertebral spurring. No prevertebral soft tissue swelling. RAD/Cerv Spine 4 or 5 Views IMPRESSION: No significant spondylolisthesis in the cervical spine. Degenerative changes. Reading Location: [id number]
== END | disposition home or self-care (01) ==
LOC: MTRAD 15:13
PROVIDERS: PCP Internal Medicine; Referring Provider Internal Medicine; Visit Provider Internal Medicine
DX: R51.9 Headache, unspecified (principal)
CPT/HCPCS: 72050